=== PATIENT | female | born 1990 | race Caucasian/White ===

== ENCOUNTER → 2016-08-17 | Outpatient (CLI) | payer BC, SELFPAY ==
[~2016-08-17] MED LIST: REQUIP0.25 MG PO; TYLENOL325 MG PO
--- NOTE | ~2016-08-17 | PUL ---
PATIENT'S NAME: ROSALIA [facility] AGE: 25 Y [address] ROOM: [place] [address] LOCATION: [facility] ADMIT DATE: 08/17/2016 Pulmonary DISCHARGE DATE: FAMILY PHYSICIAN: Marissa Urban MD ATTENDING PHYSICIAN: HARSH COHEN NAME OF PROCEDURE: Home sleep test DATE OF PROCEDURE: 08/17/16 TECH: Ramiro Marshall [facility] SUMMARY: Patient underwent home sleep testing using a type III device and was studied for a total of 8 hours and 25 minutes. In that time there were no apneas and 1 hypopnea for an apnea/hypopnea index normal at less than 1 event per hour. Oxygen saturations ranged from 89-95%. Heart rate ranged from 52 to 111 beats per minute. IMPRESSION: Normal home sleep test. PLAN: Patient will receive results from the ordering provider. MD HANNA KEY/ /[id number] dtt: 08/31/16 1302 , Bear Stewart dtd: 08/22/16 1502
== END | disposition disaster alternative care site (69) ==
LOC: GSLP 08-10 16:48
DX: G47.10 Hypersomnia, unspecified (principal); R06.81 Apnea, not elsewhere classified
CPT/HCPCS: G0399